=== PATIENT | male | born 1955 | race Caucasian/White ===

== ENCOUNTER 2017-09-26 10:07 | Emergency (ER) | payer OTHER ==
[2017-09-26] MEDS: LIDOCAINE 1% MDV 20ML VIAL IM (11:52)
[2017-09-26] MEDS: IBUPROFEN 600 MG TAB PO (12:08)
[2017-09-26] MEDS: ADACEL/BOOSTRIX VACCINE (DIPHTH/PERTUSS/ACELL/TETANUS)0.5ML SYR (90715) IM (12:09)
== END 2017-09-26 12:25 | disposition home or self-care (01) ==
LOC: M ED 10:07
DX: S01.01XA Laceration without foreign body of scalp, initial encounter (principal); W22.09XA Striking against other stationary object, initial encounter; Y92.89 Other specified places as the place of occurrence of the external cause; I10 Essential (primary) hypertension; E78.5 Hyperlipidemia, unspecified; M19.90 Unspecified osteoarthritis, unspecified site; F17.200 Nicotine dependence, unspecified, uncomplicated; Z88.8 Allergy status to other drugs, medicaments and biological substances; Z79.899 Other long term (current) drug therapy
CPT/HCPCS: 90715